=== PATIENT | male | born 1975 | race Caucasian/White ===

== ENCOUNTER → 2020-11-23 | Outpatient (CLI) | payer MEDICAID | END | disposition home or self-care (01) | LOC: RAD 18:03 | PROVIDERS: ATTEND Internal Medicine | DX: R07.9 Chest pain, unspecified (principal); R10.32 Left lower quadrant pain | CPT/HCPCS: 71046 ==

== ENCOUNTER → 2020-11-30 | Outpatient (CLI) | payer MEDICAID | END | disposition home or self-care (01) | LOC: RAD 09:21 | PROVIDERS: ATTEND Family Medicine | DX: I86.8 Varicose veins of other specified sites (principal); R10.32 Left lower quadrant pain; K64.8 Other hemorrhoids | CPT/HCPCS: 71250; 74176 ==